=== PATIENT | female | born 1940 | race Caucasian/White ===

== ENCOUNTER 2017-10-01 06:55 | Day surgery (SDC) | payer OTHER ==
[2017-10-01] MEDS ORDERED: TIMOLOL 0.5% 5 ML OPH (06:57)
[2017-10-01] MEDS ORDERED: BUPIVACAINE 0.75% (MPF) 10 ML INJ (06:57)
[2017-10-01] MEDS ORDERED: LIDOCAINE 2% (SDV) 5 ML INJ (06:58)
[2017-10-01] MEDS ORDERED: EPINEPHrine 1 MG INJ (06:58)
[2017-10-01] MEDS ORDERED: EPHEDrine SULFATE 50 MG/5 ML SYG (07:00)
[2017-10-01] MEDS ORDERED: CYCLOPENTOLATE 2% 2 ML OPH (07:32)
[2017-10-01] MEDS ORDERED: NEPAFENAC 0.1% 3 ML OPH (07:32)
[2017-10-01] MEDS ORDERED: PHENYLephrine 10% 5 ML OPH (07:32)
[2017-10-01] MEDS: NEPAFENAC 0.1% 3 ML OPH OPER (07:48)
[2017-10-01] MEDS: PHENYLephrine 10% 5 ML OPH OPER (07:49)
[2017-10-01] MEDS: CYCLOPENTOLATE 2% 2 ML OPH OPER (07:49)
[2017-10-01] MEDS: MOXIFLOXACIN 0.5% 3 ML OPH OPER (07:50)
[2017-10-01] MEDS ORDERED: SODIUM BICARBONATE (IV ADD) 50 ML (08:29)
[2017-10-01] MEDS ORDERED: LIDOCAINE 1% (MPF) 10 ML INJ (08:34)
[2017-10-01] MEDS ORDERED: PROPOFOL 20 ML ×2 (08:44→09:11)
[2017-10-01] MEDS ORDERED: MIDAZOLAM 1 MG/ML 2 ML INJ (08:44)
[2017-10-01] MEDS: LIDOCAINE 1% (MPF) 5 ML VIAL INJ (08:50)
[2017-10-01] MEDS: TETRACAINE 0.5% 4 ML OPH LEFT EYE (08:50)
[2017-10-01] MEDS ORDERED: DEXAMETHASONE 4 MG/ML 1 ML INJ (09:11)
[2017-10-01] MEDS ORDERED: ROCURONIUM 50 MG INJ (09:11)
[2017-10-01] MEDS ORDERED: ONDANSETRON 4 MG INJ (09:11)
[2017-10-01] MEDS ORDERED: METOCLOPRAMIDE 10 MG INJ (09:11)
[2017-10-01] MEDS ORDERED: SUGAMMADEX SODIUM 200 MG/2 ML VIAL IV (09:11)
[2017-10-01] MEDS ORDERED: METOCLOPRAMIDE 10 MG INJ IV (09:30)
[2017-10-01] MEDS ORDERED: HYDROmorphONE (0.2 MG/ML) 10ML SYG IV (09:30)
[2017-10-01] MEDS ORDERED: ONDANSETRON 4 MG INJ IV (09:30)
[2017-10-01] MEDS ORDERED: MEPERIDINE 25 MG INJ IV (09:30)
[2017-10-01] MEDS ORDERED: DIPHENHYDRAMINE 50 MG INJ IV (09:30)
[2017-10-01] MEDS ORDERED: FENTAnyl 50 MCG/ML VIAL IV (09:30)
[2017-10-01] MEDS ORDERED: EPHEDrine SULFATE 50 MG/5 ML SYG IV (09:30)
[2017-10-01] MEDS ORDERED: hydrALAzine 20 MG INJ IV (09:30)
[2017-10-01] MEDS: LABETALOL HCL 20MG INJ IV (10:16)
== END 2017-10-01 11:29 | disposition home or self-care (01) ==
LOC: SDS 06:55
DX: H25.12 Age-related nuclear cataract, left eye (principal); I10 Essential (primary) hypertension
CPT/HCPCS: 66984

== ENCOUNTER 2018-01-30 21:49 | Emergency (ER) | payer OTHER ==
[2018-01-31] MEDS: MELOXICAM 15 MG TAB PO (01:37)
== END 2018-01-31 02:32 | disposition home or self-care (01) ==
LOC: FTE 21:49
DX: M25.562 Pain in left knee (principal); R40.2412 Glasgow coma scale score 13-15, at arrival to emergency department
CPT/HCPCS: 73562; 99283-25

== ENCOUNTER 2018-05-20 15:11 | Emergency (ER) | payer OTHER | END 2018-05-20 19:42 | disposition left against medical advice (07) | LOC: FTE 15:11 | DX: M25.552 Pain in left hip (principal); M25.512 Pain in left shoulder | CPT/HCPCS: 73030; 73510; 99284-25 ==

== ENCOUNTER 2018-06-29 08:59 | Day surgery (SDC) | payer OTHER ==
[~2018-06-29 08:59] MED LIST: TIMOLOL MALEATE; [UNRECOGNIZED DRUG - OTHER]
[2018-06-29] MEDS: CYCLOPENTOLATE 2% 2 ML OPH OPER (09:49)
[2018-06-29] MEDS: NEPAFENAC 0.1% 3 ML OPH OPER (09:49)
[2018-06-29] MEDS: MOXIFLOXACIN 0.5% 3 ML OPH OPER (09:49)
[2018-06-29] MEDS: PHENYLephrine 10% 5 ML OPH OPER (09:49)
[2018-06-29] MEDS: LACTATED RINGER'S 1,000 ML IV (10:06)
[2018-06-29] MEDS ORDERED: PROPOFOL 20 ML (10:32)
[2018-06-29] MEDS ORDERED: CARBACHOL 0.01% 1.5 ML OPH INJ (10:42)
[2018-06-29] MEDS ORDERED: EPINEPHrine 1 MG INJ (10:42)
[2018-06-29] MEDS ORDERED: SODIUM BICARBONATE (IV ADD) 50 ML (10:42)
[2018-06-29] MEDS ORDERED: LIDOCAINE 1% (MPF) 5 ML VIAL (10:42)
[2018-06-29] MEDS ORDERED: BUPIVACAINE 0.75% (MPF) 10 ML INJ (10:42)
[2018-06-29] MEDS: LIDOCAINE 1% (MPF) 5 ML VIAL INJ (11:00)
[2018-06-29] MEDS ORDERED: MIDAZOLAM 1 MG/ML 2 ML INJ (11:26)
[2018-06-29] MEDS: TIMOLOL 0.5% 5 ML OPH RIGHT EYE (12:02)
[2018-06-29] MEDS ORDERED: DIPHENHYDRAMINE 50 MG INJ IV (12:30)
[2018-06-29] MEDS ORDERED: MIDAZOLAM 1 MG/ML 2 ML INJ IV (12:30)
[2018-06-29] MEDS ORDERED: LABETALOL HCL 20MG INJ IV (12:30)
[2018-06-29] MEDS ORDERED: ONDANSETRON 4 MG INJ IV (12:30)
[2018-06-29] MEDS ORDERED: hydrALAzine 20 MG INJ IV (12:30)
[2018-06-29] MEDS ORDERED: EPHEDrine SULFATE 50 MG/5 ML SYG IV (12:30)
[2018-06-29] MEDS ORDERED: FENTAnyl 50 MCG/ML VIAL IV ×2 (12:30)
[2018-06-29] MEDS ORDERED: MEPERIDINE 25 MG INJ IV (12:30)
[2018-06-29] MEDS ORDERED: METOCLOPRAMIDE 10 MG INJ IV (12:30)
[2018-06-29] MEDS ORDERED: OXYCODONE/ACETAMINOPHEN (5/325) TAB PO ×2 (12:30)
[2018-06-29] MEDS: FENTAnyl 50 MCG/ML VIAL IV (12:52)
== END 2018-06-29 14:16 | disposition home or self-care (01) ==
LOC: SDS 08:59
DX: H25.11 Age-related nuclear cataract, right eye (principal); I10 Essential (primary) hypertension; E78.5 Hyperlipidemia, unspecified; M81.0 Age-related osteoporosis without current pathological fracture; K21.9 Gastro-esophageal reflux disease without esophagitis; Z88.0 Allergy status to penicillin
CPT/HCPCS: 66984; 71045

== ENCOUNTER 2018-07-18 12:01 | Emergency (ER) | payer OTHER ==
[2018-07-18 12:43] LABS: ADD MAN DIFF? NO
[2018-07-18 12:48] LABS: WHITE BLOOD COUNT 4.3 10^3/ul (4.8-10.8)
[2018-07-18 12:48] LABS: BASOPHILS % 0.9 % (0.0-2.0); EOSINOPHILS # 0.1 10^3/ul (0.0-0.5); EOSINOPHILS % 3.2 % (0.0-7.0); HEMATOCRIT 35.2 % (37.0-47.0); HEMOGLOBIN 11.1 g/dl (12.0-16.0); LYMPHOCYTES # 1.3 10^3/ul (0.8-2.9); LYMPHOCYTES % 30.7 % (15.0-51.0); MEAN CORPUSCULAR HEMOGLOBIN 26.1 pg (29.0-33.0); MEAN CORPUSCULAR HGB CONC 31.5 g/dl (32.0-37.0); MEAN CORPUSCULAR VOLUME 82.6 fl (82.0-101.0); MEAN PLATELET VOLUME 8.7 fl (7.4-10.4); MONOCYTE # 0.4 10^3/ul (0.3-0.9); MONOCYTES % 9.9 % (0.0-11.0); NEUTROPHIL # 2.4 10^3/ul (1.6-7.5); NEUTROPHILS % 55.1 % (39.0-77.0); PLATELET COUNT 259 10^3/UL (140-415); RED BLOOD COUNT 4.26 10^6/ul (4.20-5.40); RED CELL DISTRIBUTION WIDTH 15.9 % (11.5-14.5)
[2018-07-18 12:52] LABS: ADD UMIC NO; UR ASCORBIC ACID NEGATIVE (NEGATIVE); UR BILIRUBIN (Dip) NEGATIVE (NEGATIVE); UR BLOOD (Dip) NEGATIVE (NEGATIVE); UR CLARITY CLEAR (CLEAR); UR COLOR COLORLESS (YELLOW); UR GLUCOSE (Dip) NEGATIVE (NEGATIVE); UR KETONES (Dip) NEGATIVE (NEGATIVE); UR LEUKOCYTE ESTERASE (Dip) NEGATIVE Leu/ul (NEGATIVE); UR NITRITE (Dip) NEGATIVE (NEGATIVE); UR SPECIFIC GRAVITY (Dip) 1.001 (1.003-1.030); UR TOTAL PROTEIN (Dip) NEGATIVE (NEGATIVE); UR UROBILINOGEN (Dip) NEGATIVE (NEGATIVE)
[2018-07-18 13:07] LABS: ALANINE AMINOTRANSFERASE 21 IU/L (13-69); ALBUMIN 4.5 g/dl (3.3-4.9); ALBUMIN/GLOBULIN RATIO 1.18; ALKALINE PHOSPHATASE 54 IU/L (42-121); ANION GAP 7 (5-13); ASPARTATE AMINO TRANSFERASE 27 IU/L (15-46); BILIRUBIN,INDIRECT 0.3 mg/dl (0-1.1); BILIRUBIN,TOTAL 0.3 mg/dl (0.2-1.3); BLOOD UREA NITROGEN 14 mg/dl (7-20); CALCIUM 9.7 mg/dl (8.4-10.2); CARBON DIOXIDE 32 mmol/L (21-31); CHLORIDE 103 mmol/L (97-110); GLUCOSE 94 mg/dl (70-220); LIPASE 194 U/L (23-300); POTASSIUM 4.6 mmol/L (3.5-5.1); SODIUM 142 mmol/L (135-144); TOTAL PROTEIN 8.3 g/dl (6.1-8.1)
[2018-07-18 13:15] LABS: URINE PH (Dip) POC 6.5 (5.0-8.5)
[2018-07-18 13:15] LABS: URINE BLOOD (Dip) POC Negative (NEGATIVE); URINE GLUCOSE (Dip) POC Negative (NEGATIVE); URINE KETONES (Dip) POC Negative (NEGATIVE); URINE LEUKOCYTE EST (Dip) POC Negative (NEGATIVE); URINE NITRITE (Dip) POC Negative (NEGATIVE); URINE TOTAL PROTEIN POC Negative (NEGATIVE)
[2018-07-18 13:17] LABS: TROPONIN-I < 0.012 ng/ml (0.000-0.120)
== END 2018-07-18 15:14 | disposition home or self-care (01) ==
LOC: E/R 12:01
DX: I71.4 Abdominal aortic aneurysm, without rupture (principal); I10 Essential (primary) hypertension
CPT/HCPCS: 36415; 74176; 80053; 81003; 83690; 84484; 85025; 93005; 99285-25

== ENCOUNTER 2019-04-25 15:50 | Emergency (ER) | payer OTHER ==
[2019-04-25] MEDS: SOD CHLORIDE 0.9% 500 ML IV (16:17)
[2019-04-25 16:21] LABS: ADD MAN DIFF? NO
[2019-04-25 16:24] LABS: BASOPHILS % 1.1 % (0.0-2.0); EOSINOPHILS # 0.1 10^3/ul (0.0-0.5); EOSINOPHILS % 3.1 % (0.0-7.0); HEMATOCRIT 34.1 % (37.0-47.0); HEMOGLOBIN 10.8 g/dl (12.0-16.0); LYMPHOCYTES # 1.1 10^3/ul (0.8-2.9); LYMPHOCYTES % 30.2 % (15.0-51.0); MEAN CORPUSCULAR HEMOGLOBIN 25.7 pg (29.0-33.0); MEAN CORPUSCULAR HGB CONC 31.7 g/dl (32.0-37.0); MEAN CORPUSCULAR VOLUME 81.2 fl (82.0-101.0); MEAN PLATELET VOLUME 8.4 fl (7.4-10.4); MONOCYTE # 0.4 10^3/ul (0.3-0.9); MONOCYTES % 11.2 % (0.0-11.0); NEUTROPHIL # 1.9 10^3/ul (1.6-7.5); NEUTROPHILS % 54.1 % (39.0-77.0); PLATELET COUNT 279 10^3/UL (140-415)
[2019-04-25 16:24] LABS: WHITE BLOOD COUNT 3.6 10^3/ul (4.8-10.8)
[2019-04-25 16:42] LABS: ALANINE AMINOTRANSFERASE 19 IU/L (13-69); ALBUMIN 4.5 g/dl (3.3-4.9); ALBUMIN/GLOBULIN RATIO 1.12; ALKALINE PHOSPHATASE 52 IU/L (42-121); ANION GAP 10 (5-13); ASPARTATE AMINO TRANSFERASE 27 IU/L (15-46); BILIRUBIN,INDIRECT 0.2 mg/dl (0-1.1); BILIRUBIN,TOTAL 0.2 mg/dl (0.2-1.3); BLOOD UREA NITROGEN 12 mg/dl (7-20); CALCIUM 10.2 mg/dl (8.4-10.2); CARBON DIOXIDE 29 mmol/L (21-31); CHLORIDE 93 mmol/L (97-110); GLUCOSE 119 mg/dl (70-220); LIPASE 169 U/L (23-300); POTASSIUM 3.9 mmol/L (3.5-5.1); SODIUM 132 mmol/L (135-144); TOTAL PROTEIN 8.5 g/dl (6.1-8.1)
[2019-04-25 16:43] LABS: INR 0.97
[2019-04-25 16:44] LABS: PARTIAL THROMBOPLASTIN TIME 33.6 Sec (23.0-35.0)
[2019-04-25 16:53] LABS: TROPONIN-I < 0.012 ng/ml (0.000-0.120)
[2019-04-25 17:06] LABS: ADD UMIC NO; UR ASCORBIC ACID NEGATIVE (NEGATIVE); UR BILIRUBIN (Dip) NEGATIVE (NEGATIVE); UR BLOOD (Dip) NEGATIVE (NEGATIVE); UR CLARITY CLEAR (CLEAR); UR COLOR COLORLESS (YELLOW); UR GLUCOSE (Dip) NEGATIVE (NEGATIVE); UR KETONES (Dip) NEGATIVE (NEGATIVE); UR LEUKOCYTE ESTERASE (Dip) NEGATIVE Leu/ul (NEGATIVE); UR NITRITE (Dip) NEGATIVE (NEGATIVE); UR SPECIFIC GRAVITY (Dip) 1.002 (1.003-1.030); UR TOTAL PROTEIN (Dip) NEGATIVE (NEGATIVE); UR UROBILINOGEN (Dip) NEGATIVE (NEGATIVE)
== END 2019-04-25 17:34 | disposition home or self-care (01) ==
LOC: E/R 15:50
DX: R53.1 Weakness (principal); I10 Essential (primary) hypertension
CPT/HCPCS: 36415; 71045; 80053; 81003; 83690; 84484; 85025; 85610; 85730; 86850; 86900; 86901; 93005; 99285-25